=== PATIENT | male | born 1990 | race Caucasian/White ===

== ENCOUNTER 2016-10-26 23:55 | Emergency (ER) | payer SELFPAY ==
[2016-10-27 00:06] VITALS: TEMP 97.5
[2016-10-27 00:14] VITALS: BMI 31.0
[2016-10-27] MEDS ORDERED: CLINDAMYCIN 150 MG CAP PO ONE (00:15)
[2016-10-27] MEDS ORDERED: OXYCODONE HCL 5 MG TABLET PO STA (00:15)
--- NOTE | 2016-10-27 00:20 | EDPRACDOC ---
- General Information Chief Complaint: Wound Stated Complaint: KNEE SWELLING Time Seen by Provider: 10/27/16 00:06 Information Source: Patient Mode of Arrival:: Car Home Medications: Home Medications Clindamycin HCl [Cleocin HCl] 300 mg PO Q6H #40 capsule 10/27/16 Oxycodone HCl [Roxicodone] 5 mg PO Q4-6H PRN #20 tablet 10/27/16 Allergies/Adverse Reactions: Allergies Allergy/AdvReac Type Severity Reaction Status Date / Time Sulfa (Sulfonamide Allergy Difficulty Verified 10/27/16 00:07 Antibiotics) Breathing - History of Present Illness Onset: evening HPI: PT PRESENTS WITH LEFT ANTERIOR LOWER LEG PAIN INFERIOR TO KNEE. HE HAD AN AREA THAT HE THOUGHT WAS AN INSECT BITE AND SQUEEZED IT. SINCE IT HAS BECOME MORE RED AND PAINFUL. NO PAIN WITHIN THE KNEE JOINT. Relevent History Of: Reports: None Pain: Reports: Moderate Quality: Reports: Painful, Red Associated Signs & Symptoms: Denies: Fever, Proximal Streaking ED Past Medical History - History Reviewed Yes Nurses notes reviewed and agree except as marked - Patient Medical History Psychological History: Denies: Depression, Substance Use Disorder Surgical History: Reports: Appendectomy - Family Medical History Reports: Diabetes (DAD), Stroke (MOM). Denies: Hypertension, Cancer, Cardiac Disorders - Social Medical History Smoking Status: Former smoker Social History: Denies: Barbiturate Use, Benzodiazipine Use, Substance Use Disorder Lives With: Family Lives In: Home EDM Review of Systems - Review of Systems ROS Negative Except as Marked: Yes All systems reviewed and were negative except as marked Constitutional: negative: Fever Integumentary: Wound (LEFT ANTERIOR KNEE) - Physical Exam Constitutional: Alert Oriented to: Time, Person, Place Last recorded Vital Signs: Last Vital Signs Temp 97.5 F 10/27/16 00:06 Pulse 107 10/27/16 00:06 Resp 18 10/27/16 00:06 BP 129/75 10/27/16 00:06 Pulse Ox 98 10/27/16 00:06 Oxygen Pulse Oxygen Saturation 98 O2 Device Oxygen Flow Rate Fraction of Inspired Oxygen ( FIO2) - Integumentary Skin: Warm, Dry, Other (WELL CIRCUMSCRIBED AREA OF CELLULITIS TO LEFT ANTERIOR KNEE AROUND SKIN DEFECT WITHOUT UNDERLYING FLUCTUANCE. NO TENDERNESS TO PALPATION OF KNEE JOINT OR NOTABLE EFFUSION.) - Neurologic Memory Impaired: Normal Motor Function: Normal Mood Description: Anxious Thought: Coherent Perception: Normal Decision Time to Discharge: 00:21 - Departure Yes I personally saw and evaluated the patient. Disposition: Home Condition: Stable Final Diagnosis: Left leg cellulitis Instructions: Cellulitis (ED) Education/Counseling Given To: Patient, Family Member Education/Counseling Given Regarding: Diagnosis, Treatment, Prognosis, Follow Up Referrals: None,No Provider [Primary Care Provider] - Call for Appointment Prescriptions: Clindamycin HCl [Cleocin HCl] 300 mg PO Q6H #40 capsule Oxycodone HCl [Roxicodone] 5 mg PO Q4-6H PRN #20 tablet PRN Reason: Breakthrough Pain Additional Instructions: PLEASE RETURN IF YOUR SYMPTOMS ARE NOT IMPROVING OVER THE NEXT FEW DAYS.
[2016-10-27 00:47] VITALS: BP 117/76; PULSE 96
== END 2016-10-27 00:45 | disposition home or self-care (01) ==
LOC: ED 23:55
DX: L03.116 Cellulitis of left lower limb (principal)
CPT/HCPCS: 99283; J3490